=== PATIENT | female | born 1985 | race Caucasian/White ===

== ENCOUNTER 2018-09-04 07:42 | Emergency (ER) | payer MEDICAID ==
[~2018-09-04] VITALS: Ht 154.9 cm; Wt 56.8 kg
--- NOTE | 2018-09-04 08:30 | NUR ---
MOTHER ARRIVED WITH SIGNIFANT OTHER WITH C/O OF INTERMITTENT SHARP ABD PAIN THAT STARTED AT APPROX 0530 THIS AM. STATES THAT SHE HAD 1 EPISODE OF DIARRHEA/N/V. LMP IS UNKNOWN, STATES THAT HER PERIODS ARE VERY IRREGULAR AND SHE CAN NOT REMEMBER WHEN HER LAST ONE WAS. PT STATES THAT SHE IS SEXUALLY ACTIVE BUT HAS NOT BEEN INTIMATE FOR "QUITE SOMETIME." MOTHER DENIES ANY SIGIFICANY MEDIAL HX, NO DRUG USE, NO SMOKING. PT STATES THAT SHE HAS THE URGE TO PUSH, DR LE SUMMONED TO THE PT'S BEDSIDE, UTERINE CONTRACTIONS CAN BE FELT WITH ABDOMINAL PALPATION BY THE RN. DR LE ULTRASOUNDED THE PT,HEART BEAT COULD BE SEEN ALONG WITH BABY'S SPINE AND HEAD. VAGINAL EXAM PERFORMED BY DR LE AND CONFIRMED BABY'S HEAD WAS DOWN IN THE CANAL. MOTHER INFORMED THAT SHE WAS HAVING A BABY, MOTHER HAD 2 MORE CONTRACTIONS AND ASKED IF SHE COULD PUSH. BABY WAS BORN AT 0820. BABY SUCTIONED ON THE PERINIUM, CORD CLAMPED WITH 3 VESSELS NOTED. WT 2K; 4 LBS 6 OZ, 16.6" LONG, HEAD CIRCUMFRENCE 28.5 CM. 7/9, ACCUCHECK 74. BABY IS ACTIVE, BBS CLEAR AND REQUIRED APPROX 5 MIN OF BLOWBY O2 TO PINKEN. BABY WAS DRIED WRAPPED IN WARM BATH BLANKET WITH CAP AND GIVEN TO MOTHER FOR BONDING.
--- NOTE | 2018-09-04 08:30 | NUR ---
ACCUCHECK FOR BABY DONE UNDER MOTHERS ID BAND. ACCUCHECK ON BB RIAN Feldman
[2018-09-04 08:53] LABS: BASOPHILS % (AUTO) 0.1 % (0-1); EOSINOPHILS % (AUTO) 0 % (0-6); HEMATOCRIT 41.6 % (35.0-45.0); HEMOGLOBIN 14.1 g/dl (12.0-16.0); LYMPHOCYTES # (AUTO) 1.2 X10'3 (1.1-4.8); LYMPHOCYTES % (AUTO) 5.6 % (21-51); MEAN CORPUSCULAR HEMOGLOBIN 28.5 PG (27.0-31.0); MEAN CORPUSCULAR HGB CONC 33.7 g/dL (33.0-36.5); MEAN CORPUSCULAR VOLUME 84.4 FL (78-98); MEAN PLATELET VOLUME 8.8 FL (7.4-10.4); MONOCYTES # (AUTO) 0.5 X10'3 (0-0.9); MONOCYTES % (AUTO) 2.5 % (2-12); NEUTROPHILS # (AUTO) 19.8 X10'3 (1.8-7.7); NEUTROPHILS % (AUTO) 91.8 % (42-75); PLATELET COUNT 381 X10'3 (140-440); RED BLOOD COUNT 4.93 X10'6 (4.20-5.60); RED CELL DISTRIBUTION WIDTH 13.7 % (11.5-14.5); WHITE BLOOD COUNT 21.6 X10'3 (4.5-11.0)
[2018-09-04 09:00] LABS: ALANINE AMINOTRANSFERASE 37 U/L (12-78); ALBUMIN/GLOBULIN RATIO 0.7 (1.1-1.5); ALKALINE PHOSPHATASE 246 IU/L (46-116); ANION GAP 15 (8-16); ASPARTATE AMINO TRANSFERASE 31 U/L (10-37); BILIRUBIN,TOTAL 0.6 MG/DL (0.1-1.0); BLOOD UREA NITROGEN 7 MG/DL (7-18); CALCIUM 9.2 MG/DL (8.5-10.1); CHLORIDE 99 MMOL/L (99-107); CREATININE 0.88 MG/DL (0.40-0.90); GLUCOSE 154 MG/DL (70-104); SODIUM 132 MMOL/L (135-145); TOTAL CARBON DIOXIDE 18.4 MMOL/L (24-32); TOTAL PROTEIN 7.6 G/DL (6.4-8.2); eGFR 74 ML/MIN
[2018-09-04 09:10] LABS: INR 0.9 INR
[2018-09-04] MEDS ORDERED: potassium 10mEq/100ml NS w/LIDOcaine (10mg/bag) IV ONE (09:20)
[2018-09-04] MEDS ORDERED: ceFAZolin 1GM/D5W- ADD-VANTAGE 50 ML IV ONE (09:20)
[2018-09-04] MEDS ORDERED: morphine 4 MG/ML inj SYRINge IV ONE (09:30)
[2018-09-04] MEDS ORDERED: ondansetron/PF 4mg/2ml inj IV ONE ×2 (09:30→11:00)
[2018-09-04] MEDS ORDERED: cyanocobalamin 1,000 mcg/ml inj IM ONE (09:45)
[2018-09-04] MEDS ORDERED: erythromycin ophthalmic ointment 1gm tube EACHEYE ONE (09:45)
[2018-09-04] MEDS ORDERED: diphenhydrAMINE 50 mg/ml inj IV ONE (10:00)
[2018-09-04] MEDS ORDERED: normal saline 1000ml 1,000 ML IV ONE (10:55)
--- NOTE | 2018-09-04 11:30 | NUR ---
MOTHER TRANSFERED TO [facility] L/D, REPORT GIVEN TO MURPHY WONG
--- NOTE | 2018-09-04 11:45 | NUR ---
PLACENTA SENT TO LAB
[2018-09-04 12:35] VITALS: BP 156/106
== END 2018-09-04 11:25 | disposition short-term general hospital (02) ==
LOC: ER 07:43
DX: O80 Encounter for full-term uncomplicated delivery (principal); Z3A.00 Weeks of gestation of pregnancy not specified; Z37.0 Single live birth
CPT/HCPCS: 36415; 59409; 80053; 82948; 85025; 85610; 96365; 96375; 96376; 99285; J0690; J1200; J2270; J2405; J7030